=== PATIENT | female | born 1950 | race Caucasian/White ===

== ENCOUNTER 2021-04-26 12:51 | Inpatient (IN) ==
--- NOTE | 2021-04-26 13:10 | Emergency Department Note ---
Fall HPI General Chief Complaint: Trauma Stated Complaint: fall Time Seen by Provider: 04/26/21 13:03 Source: patient, family, RN notes reviewed and old records reviewed Mode of arrival: wheelchair Limitations: no limitations History of Present Illness HPI Narrative: Narrative: 70-year-old female complains of mechanical fall and driveway at [facility]. She has a history of a CVA with left residual and she tripped and fell. She is describes hitting the left side of her head her left ankle and left wrist. She denies loss of consciousness she denies nausea vomiting she denies discharge from ears or nose she has chronic neck pain and she says it is unchanged she denies any chest pain or abdominal pain or pelvis pain she is able to ambulate but complains of pain and swelling to her left wrist into her left ankle. MD Complaint: fall Onset (ago): minute(s) (30) Fall From: standing Fall Witnessed: no Place Fall Occurred: home Loss of Consciousness: none Prolonged Down Time?: minute(s) (30) Context: tripped/slipped Location of injury: head Location of injury - extremities: Left: forearm (wrist) and ankle Severity: moderate Quality: dull and aching Associated symptoms (after fall): Reports neck pain; Denies headache, numbness, weakness, chest pain, shortness of breath, abdominal pain, hematuria, unable to walk, lightheaded, vertigo and confusion Related Data Home Medications Medication Instructions Recorded Confirmed aspirin 81 mg tablet,delayed 81 mg PO QDAY 07/17/17 04/26/21 release vitamin B complex 1 tab PO QDAY 07/17/17 04/26/21 multivitamin,[id number] 1 tab PO QDAY 07/28/17 04/26/21 Previous Rx's Medication Instructions Recorded albuterol sulfate 90 mcg/actuation 2 puff INHALATION Q6H #18 g 02/23/21 aerosol inhaler atorvastatin 40 mg tablet 40 mg PO QHS #90 ea 02/23/21 cholecalciferol (vitamin D3) 25 1,000 unit PO QDAY #90 cap 02/23/21 mcg (1,000 unit) capsule sertraline 100 mg tablet 100 mg PO QDAY #90 tab 02/23/21 apixaban 5 mg tablet 5 mg PO BID 90 Days #180 tab 03/16/21 ipratropium 0.5 mg-albuterol 3 mg 3 ml INHALATION Q4H PRN 90 Days 03/16/21 (2.5 mg base)/3 mL nebulization #180 ml soln Allergies Allergy/AdvReac Type Severity Reaction Status Date / Time No Known Drug Allergies Allergy Verified 03/16/21 16:40 Review of Systems ROS ROS Narrative: Narrative: All systems ED: reviewed and negative except as stated. 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) History of CVA (cerebrovascular accident) (Chronic) Alcohol abuse (Chronic) Anxiety states (Chronic) Depression, major, recurrent (Chronic) Muscle spasm of left shoulder (Chronic) Osteoarthritis (Chronic) Hypothyroidism (Chronic) Pulmonary nodule (Chronic) Spastic hemiparesis of left nondominant side (Chronic) Vertebral artery stenosis (Chronic) Paroxysmal atrial fibrillation (Chronic) Pure hypercholesterolemia (Chronic) Hypertension (Chronic) History of Coumadin therapy (Chronic) Subconjunctival hemorrhage (Chronic) Shortness of breath (Chronic) COPD (chronic obstructive pulmonary disease) (Chronic) Ischemic stroke without coma (Chronic) Medical History Alcohol abuse Anxiety states Atrial fibrillation COPD (chronic obstructive pulmonary disease) Depression, major, recurrent Fatigue History of Coumadin therapy History of CVA (cerebrovascular accident) History of stroke 2016, left side residuals Hypertension Hypothyroidism Ischemic stroke without coma 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 use of aspirin Medicare annual wellness visit, initial Muscle spasm of left shoulder Nasal congestion BRONWYN on CPAP Osteoarthritis Paroxysmal atrial fibrillation Pulmonary nodule Pure hypercholesterolemia Shortness of breath Spastic hemiparesis of left nondominant side Stroke (~06/2016) Subconjunctival hemorrhage Swelling of left hand Tobacco use Vertebral artery stenosis Surgical History History of tonsillectomy and adenoidectomy Family History Mother Heart disease Phlebitis Rheumatoid arthritis Father Stroke Alcoholism Brother Alcoholism Thyroid disorder Sister Diabetes Daughter Ovarian cyst Social History Smoking Status: Former smoker Alcohol Intake Frequency: a few times a month Substance Use: does not use Exam Narrative Narrative: Narrative: General Limitations: no limitations General appearance: Present alert and in no apparent distress Head Head: Present normocephalic and normal inspection Eye Eye: Present normal appearance, PERRL and EOMI; Absent scleral icterus and conjunctival injection ENT ENT: Present normal exam, normal oropharynx and mucous membranes moist Neck Neck: Present normal inspection, trachea midline and tenderness; Absent lymphadenopathy and thyromegaly Chest Chest: Present normal inspection and symmetric chest wall rise; Absent tenderness Respiratory Respiratory: Present wheezes; Absent respiratory distress, stridor, accessory muscle use and prolonged expiratory phase Cardiovascular Cardiovascular: Present regular rate, normal rhythm and systolic murmur; Absent diastolic murmur Adbominal Abdominal: Present soft; Absent distention, tenderness, guarding, rebound, rigidity, organomegaly and mass Extremities Extremities: Present full ROM, tenderness, normal capillary refill and joint swelling (Left ankle and left wrist with swelling and); Absent pedal edema, pretibial edema and calf tenderness Back Back: Present normal inspection and full ROM; Absent tenderness, CVA tenderness (R), CVA tenderness (L) and spinous process tenderness Neurological Neurological: Present alert, oriented X3 and motor sensory deficit (CVA residual to left upper extremity) Psychiatric Psychiatric: Present normal affect and normal mood Skin Skin: Present warm (WNL) and dry Course Vital Signs Vital signs: Vital Signs Temperature 98.1 F 04/26/21 12:52 Pulse Rate 67 04/26/21 12:52 Respiratory Rate 16 04/26/21 12:52 Blood Pressure 146/70 04/26/21 12:52 Pulse Oximetry (%) 95 04/26/21 12:52 Temperature 98.1 F 04/26/21 12:52 Pulse Rate 66 04/26/21 15:04 Respiratory Rate 16 04/26/21 12:52 Blood Pressure 108/89 04/26/21 14:32 Pulse Oximetry (%) 97 04/26/21 15:04 [facility] Narrative Medical decision making narrative: Narrative: 70-year-old female with a wrist fracture and able calcaneus fracture discussed patient Dr. Lopez who graciously agreed to evaluate the patient in the emerg ency department. Head neck CT are without acute changes old right middle cerebral artery CVA noted Lab Data Result diagrams: 04/26/21 14:41 04/26/21 14:41 Labs: Lab Results 04/26/21 Range/Units 14:41 POC Hct 38 (36-48) % POC Sodium 145 (133-145) mEq/L POC Potassium 3.9 (3.3-5.1) mEql/L POC Chloride 109 H (96-108) mEq/L POC Total CO2 24 (22-30) mmol/L POC BUN 9 (6-20) mg/dL POC Creatinine 0.7 (0.6-1.2) mg/dL POC Glucose 96 (70-105) mg/dL POC WB Ioniz Calcium 1.24 (1.16-1.32) mmEq/L ED POC Tests ED POC Tests: INDER - SARS Antigen Negative Radiology Data Radiology results reviewed: Yes I reviewed the patient's radiology results. Radiology results narrative: Left Ankle IMPRESSION: large avulsion fracture off the posterior border of the calcaneus Left Wrist IMPRESSION: Intra-articular fracture of the distal radius with overlying soft tissue swelling Head and Neck NAD old CVA EKG Data EKG #1: EKG attestation: Yes I reviewed and interpreted this EKG. EKG shows normal: sinus rhythm Rate: normal (59) Rhythm: NSR [place]/QRS: normal Heart block present: None ST segment elevation in: None Q waves: None T wave inversions noted in: None Hyperacute T waves: None QTc: normal QRS morphology: Present normal Interpretation: no acute changes Pulse Oximetry Data Pulse Ox %: 97 Interpretation: WNL Discharge Plan Patient/Caregiver Discharge Instructions Pt seen by HEALTH PROGRAM ANALYST/PA only: No Clinical Impression: Closed head injury Qualifiers: Encounter type: initial encounter Qualified Code(s): S09.90XA - Unspecified injury of head, initial encounter Calcaneus fracture, left Qualifiers: Encounter type: initial encounter Calcaneus location: body Fracture type: closed Fracture alignment: displaced Qualified Code(s): S92.012A - Displaced fracture of body of left calcaneus, initial encounter for closed fracture Left wrist fracture Qualifiers: Encounter type: initial encounter Fracture type: closed Qualified Code(s): S62.102A - Fracture of unspecified carpal bone, left wrist, initial encounter for closed fracture Patient Disposition: Xfer As Inpt ([facility]) Follow up with: Jaimie Castro DO [Primary Care Provider] - Prescriptions: No Action aspirin 81 mg tablet,delayed release (DR/EC) 81 mg PO QDAY RF: 0 vitamin B complex tablet 1 tab PO QDAY RF: 0 multivitamin,[id number] [Complete Multivitamin] tablet 1 tab PO QDAY RF: 0 atorvastatin 40 mg tablet 40 mg PO QHS Qty: 90 RF: 0 cholecalciferol (vitamin D3) 25 mcg (1,000 unit) capsule 1,000 unit PO QDAY Qty: 90 RF: 0 sertraline 100 mg tablet 100 mg PO QDAY Qty: 90 RF: 0 albuterol sulfate 90 mcg/actuation HFA aerosol inhaler 2 puff INHALATION Q6H Qty: 18 RF: 6 ipratropium-albuterol 0.5 mg-3 mg(2.5 mg base)/3 mL solution for nebulization 3 ml INHALATION Q4H PRN (Reason: shortness of breath) 90 Days Qty: 180 RF: 0 Eliquis 5 mg tablet 5 mg PO BID 90 Days Qty: 180 RF: 0
--- NOTE | 2021-04-26 13:55 | Cat Scan Report ---
History: Fell, head injury, anticoagulated, prior stroke TECHNIQUE: The brain was imaged without contrast in axial plane at 2.5 mm intervals. Sagittal and coronal reformats were created. The radiation exposure was limited using dose reduction technology. FINDINGS: Bone windows show no skull fracture. There is no intracranial hemorrhage or cerebral edema. There is a large old infarct with encephalomalacia in distribution of the right middle cerebral artery. Involves the frontal parietal and temporal lobes. There are also large old lacunar infarct with encephalomalacia anteriorly in the right basal ganglia. Small old lacunar infarct is present inferiorly in the left putamen. These infarcts were seen acutely on 07/11/16. No new infarct is detected. There is loss of brain parenchyma the right hemisphere allowing for the right lateral ventricle to become mildly dilated. There is no hydrocephalus. No abnormal extra-axial fluid collection has developed. IMPRESSION: Old infarcts, predominantly involving the distribution of the right middle cerebral artery No evidence of acute head injury Dr. Perrin was called with the report Interpreted and Authenticated by: Juve Schneider 04/26/21
--- NOTE | 2021-04-26 13:55 | Cat Scan Report ---
History: Fell with neck injury, anticoagulated TECHNIQUE: The neck was imaged without contrast in axial plane at 2.5 mm intervals from the skull base through the thoracic inlet. Sagittal and coronal reformats were created. The radiation exposure was limited using dose reduction technology. FINDINGS: There is no fracture or destructive bone lesion. There is moderate arthritis at the articulation of the odontoid and anterior ring of C1. There is a small cortical erosion along the top of the odontoid. There is severe disc space narrowing at C5-6 and C6-7 there is moderate narrowing at C7-T1. There are medium-sized spurs along the posterior border of these disc spaces. There is also 3 mm grade 1 spondylolisthesis at C5-C6 due to arthritis in the facet joints. There is severe arthritis in the right facet at C2-3 and the left side at C4-5. There is ankylosis across the right side facet joint at C3-4. There is spurring of the uncinate processes causing severe stenosis of the right-side neural foramen at C6-7 and moderate stenosis bilaterally at C5-6. There is no paraspinal hematoma or prevertebral edema. IMPRESSION: No fracture Degenerative disc disease and arthritis at multiple levels Dr. Perrin was called with the report Interpreted and Authenticated by: Juve Schneider 04/26/21
--- NOTE | 2021-04-26 13:55 | XRay Report ---
HISTORY: Fell FINDINGS: There is a large avulsion fracture fragment off of the posterior superior corner of the calcaneus. The fragment measures 1.7 x 3.7 cm. It has rotated and retracted proximally. It is located behind the ankle joint. Ankle joint itself is normal without evidence of a fracture. Subtalar joint spaces are normal. IMPRESSION: large avulsion fracture off the posterior border of the calcaneus Interpreted and Authenticated by: Juve Schneider 04/26/21
--- NOTE | 2021-04-26 13:55 | XRay Report ---
HISTORY: Fell with left wrist injury FINDINGS: There is an acute mildly comminuted intra-articular fracture the distal radius. The articular surface slightly slopes in a dorsal direction. There is a small displaced fragment along the dorsal side. The carpal bones remain normally aligned with the radius. The carpal bones are normal, with no fracture or significant arthritis. Patient has underlying moderate osteoporosis. IMPRESSION: Intra-articular fracture of the distal radius with overlying soft tissue swelling Interpreted and Authenticated by: Juve Schneider 04/26/21
[2021-04-26] MEDS ORDERED: IPRATROPIUM/ALBUTEROL 3 ML AMPUL.NEB NEB ONE (14:05)
[2021-04-26] MEDS ORDERED: morphine 4 MG/ML VIAL IV ONE (14:32)
[2021-04-26] MEDS ORDERED: 0.9 % SODIUM CHLORIDE 500 ML IV ONE (14:32)
[2021-04-26] MEDS ORDERED: ONDANSETRON 4 MG/2 ML VIAL IV ONE (14:32)
[2021-04-26 15:02] LABS: POC Blood Urea Nitrogen 9 mg/dL (6-20); POC CO2 24 mmol/L (22-30); POC Calcium, Ionized 1.24 mmEq/L (1.16-1.32); POC Chloride 109 mEq/L (96-108); POC Creatinine 0.7 mg/dL (0.6-1.2); POC Glucose, Random 96 mg/dL (70-105); POC Hematocrit 38 % (36-48); POC Potassium 3.9 mEql/L (3.3-5.1); POC Sodium 145 mEq/L (133-145)
[2021-04-26 15:27] LABS: Basophils # (Auto) 0.07 K/mcL (0.00-0.20); Basophils % (Auto) 0.7 % (0.0-2.0); Eosinophils # (Auto) 0.08 K/mcL (0.00-0.70); Eosinophils % (Auto) 0.8 % (0.0-7.0); Hematocrit 40.8 % (36.0-48.0); Hemoglobin 13.3 g/dL (12.0-15.0); Lymphocytes # (Auto) 2.24 K/mcL (1.50-4.80); Lymphocytes % (Auto) 23.4 % (15.0-49.0); Mean Cell Volume 91.3 fL (80.0-100.0); Mean Corpuscular HGB Conc 32.6 g/dL (31.0-36.0); Mean Platelet Volume 10.9 fL (7.4-10.4); Monocytes # (Auto) 0.45 K/mcL (0.10-0.90); Monocytes % (Auto) 4.7 % (1.0-12.0); Neutrophils % (Auto) 70.4 % (38.0-78.0); Platelet Count 238 K/mcL (140-440); RBC 4.47 M/mcL (4.00-5.20); Red Cell Distribution Width 13.9 % (11.5-14.5); WBC 9.6 K/mcL (4.5-11.0)
--- NOTE | 2021-04-26 15:31 | XRay Report ---
HISTORY: Preop for fracture repair FINDINGS: The lungs are clear well-expanded. The heart size, pulmonary vascular, mediastinum, kali and pleura are normal. No fracture is identified. Large right-sided epicardial fat pad is present which was documented on a prior CT. IMPRESSION: Normal chest Interpreted and Authenticated by: Juve Schneider 04/26/21
[2021-04-26] MEDS ORDERED: PROPOFOL 200 MG/20 ML VIAL IV ONE (15:34)
[2021-04-26] MEDS ORDERED: ONDANSETRON 4 MG/2 ML VIAL ONE (15:34)
[2021-04-26] MEDS ORDERED: TRANEXAMIC ACID 1,000 MG/10 ML VIAL IV ONE (15:34)
[2021-04-26] MEDS ORDERED: DEXAMETHASONE 10 MG/ML VIAL ONE (15:34)
[2021-04-26] MEDS ORDERED: KETAMINE 50 MG/ML ML ONE (15:34)
[2021-04-26] MEDS ORDERED: SUCCINYLCHOLINE 20 MG/ML ML IV ONE (15:34)
[2021-04-26] MEDS ORDERED: LIDOCAINE HCL/PF 100 MG/5 ML SYRINGE IV ONE (15:34)
[2021-04-26] MEDS ORDERED: fentaNYL 250 MCG/5 ML VIAL IV ONE (15:34)
[2021-04-26] MEDS ORDERED: GLYCOPYRROLATE 0.2 MG/ML VIAL IV ONE (15:34)
[2021-04-26 15:50] LABS: ALT/SGPT 16 U/L (<40); AST/SGOT 18 U/L (<32); Albumin 4.1 gm/dL (3.2-5.2); Albumin/Globulin Ratio 1.5 (1.0-2.3); Alkaline Phosphatase 105 U/L (39-117); Bilirubin,Total 0.3 mg/dL (0.1-1.0); Blood Urea Nitrogen 9 mg/dL (8-23); Calcium 9.5 mg/dL (8.6-10.4); Carbon Dioxide 24 mmol/L (22-30); Chloride 109 mmol/L (96-108); Globulin 2.7 gm/dL (2.2-3.7); Glomerular Filtration Rate 87; Glucose 93 mg/dL (70-105)
--- NOTE | 2021-04-26 15:53 | History and Physical Report ---
DATE OF ADMISSION: 04/26/2021 IDENTIFICATION: A 70-year-old female. CHIEF COMPLAINT: 1. Left calcaneus fracture. 2. Left distal radius fracture. HISTORY: Sheba had a fall in her driveway. This is a ground-level non-syncopal fall. She had immediate pain, was not able to bear weight, was transferred to the hospital where she was evaluated and diagnosed with a calcaneus fracture, which is a tongue-type and distal radius fracture. Because the calcaneus fracture is tenting the skin, we are called for more acute management of this. PAST MEDICAL HISTORY: Significant for pervious stroke, history of COPD, atrial fibrillation, status post depression and anxiety. PAST SURGICAL HISTORY: Noncontributory to this present problem. PRESENT MEDICATIONS: Include: 1. Aspirin. 2. Vitamin B. 3. Atorvastatin. 4. Vitamin D. 5. Sertraline. 6. Albuterol. 7. Ipratropium. 8. Eliquis. ALLERGIES: NONE. REVIEW OF SYSTEMS: Apparently, she has been in usual state of health. No acute changes in past medical. PHYSICAL EXAMINATION: GENERAL: Shows she is awake and alert. She is resting comfortably. HEAD: Normocephalic, atraumatic. EYES: PERRLA. Conjunctivae clear. ENT: Within normal limits. NECK: Supple without pain on range of motion. HEART: Irregular. LUNGS: Clear. ABDOMEN: Benign. EXTREMITIES: Left distal radius shows some minimal deformity and some diffuse swelling with ecchymosis without neurovascular deficit. Her left lower extremity shows that there are several areas in the region of the Achilles, which are compromising the skin secondary to this fracture without neurovascular deficit. Her radiographs demonstrate a distal radius fracture with not excess displacement. It is shortened some and dorsally angulated. Her calcaneus is tongue-type with fragments that are migrated significantly proximally. IMPRESSION: Fractures, as above the calcaneus fracture is tenting the skin and will compromise the skin if not addressed. PLAN: We have reviewed treatment option. We will plan to proceed to the operating room with open reduction and internal fixation of this tongue-type fracture of the calcaneus and reduction and stabilization of the distal radius with splint. Procedure, risks, complications, limitations have been discussed with the patient family. They understand these well, wish to proceed. [email or web address] Job ID: [id number] Doc ID: [id number] Bjorn Lopez MD
--- NOTE | 2021-04-26 17:08 | Brief Operative Note ---
Brief Operative Note Date of procedure: 04/26/21 Pre-op diagnosis: L calcaneus fracture, L wrist fracture Post-op diagnosis: same Procedure: calcaneus fracture Grafts/Implants: No Anesthesia: GETA Complications: none Surgeon: Bjorn Lopez Tourniquet Time (Minutes): 45 Specimens Removed/Pathology: none sent Condition: stable Disposition: PACU
[2021-04-26] MEDS ORDERED: METHOCARBAMOL 1,000 MG/10 ML VIAL IV PRN (17:23)
[2021-04-26] MEDS ORDERED: MEPERIDINE 25 MG/ML VIAL IV PRN (17:23)
[2021-04-26] MEDS ORDERED: fentaNYL 100 MCG/2 ML VIAL IV PRN (17:23)
[2021-04-26] MEDS ORDERED: NALOXONE HCL 0.4 MG/ML VIAL IV PRN (17:23)
[2021-04-26] MEDS ORDERED: IPRATROPIUM/ALBUTEROL 3 ML AMPUL.NEB NEB PRN (17:23)
[2021-04-26] MEDS ORDERED: METOPROLOL TARTRATE 5 MG/5 ML VIAL IV PRN (17:23)
[2021-04-26] MEDS ORDERED: ONDANSETRON 4 MG/2 ML VIAL IV PRN (17:23)
[2021-04-26] MEDS ORDERED: PROMETHAZINE 25 MG/ML VIAL IV PRN (17:23)
[2021-04-26] MEDS ORDERED: HYDROmorphone 0.5 MG/0.5 ML SYRINGE IV PRN (17:23)
[2021-04-26] MEDS ORDERED: ACETAMINOPHEN 1,000 MG/100 ML BAG IV ONE (17:23)
[2021-04-26] MEDS: ALBUTEROL SULFATE 200 PUFF INHALER INH SCH ×2 (18:06→23:55)
[2021-04-26] MEDS: HYDROCODONE/APAP 7.5/325MG TABLET PO PRN ×2 (18:51→22:55)
[2021-04-26] MEDS ORDERED: BENZOCAINE/MENTHOL 1 LOZENGE PO PRN (20:10)
[2021-04-26] MEDS ORDERED: BENZOCAINE/MENTHOL 1 LOZENGE PO ONE (20:15)
[2021-04-26] MEDS ORDERED: ATORVASTATIN 40 MG TABLET PO SCH (21:00)
[2021-04-26] MEDS: IPRATROPIUM/ALBUTEROL 3 ML AMPUL.NEB NEB PRN (21:55)
[2021-04-26] MEDS: APIXABAN 5 MG TABLET PO SCH (21:55)
[2021-04-26] MEDS: 0.9 % SODIUM CHLORIDE 10 ML SYRINGE IV SCH (21:55)
[2021-04-27] MEDS: ceFAZolin 1 GM VIAL IV SCH ×2 (00:03→07:57)
[2021-04-27] MEDS: HYDROCODONE/APAP 7.5/325MG TABLET PO PRN ×5 (03:59→21:33)
[2021-04-27] MEDS: IPRATROPIUM/ALBUTEROL 3 ML AMPUL.NEB NEB PRN ×3 (04:11→18:21)
[2021-04-27] MEDS: 0.9 % SODIUM CHLORIDE 10 ML SYRINGE IV SCH ×3 (04:11→21:33)
[2021-04-27] MEDS: ALBUTEROL SULFATE 200 PUFF INHALER INH SCH (04:11)
--- NOTE | 2021-04-27 07:19 | Orthopedic Progress Note ---
SUBJECTIVE Subjective Patient information: Note initiated : 04/27/21 at 7:15 am Service Date, if different from initiated Date: [] Patient: Sheba Spence a 70 y/o F admitted on for fall. Chief Complaint: [calcaneus fracture, distal radius fracture ] Principal diagnosis: calcaneus fracture Constitutional Vitals: Vital Signs Temp Pulse Resp BP Pulse Ox 97.3 F 80 14 131/71 93 04/27/21 03:59 04/27/21 03:59 04/27/21 03:59 04/27/21 03:59 04/27/21 03:59 Period Temp Pulse Resp BP Sys/Dillard Pulse Ox Last 24 Hr 97.1 F-98.1 F 59-85 12-18 89-146/38-89 85-100 Intake and Output 04/26/21 04/27/21 04/27/21 21:59 05:59 13:59 Intake Total 1700 200 120 Output Total 150 2 1 Balance 1550 198 119 Weight 226 lb Intake & Output: Intake & Output 04/26/21 04/27/21 04/27/21 21:59 05:59 13:59 Intake Total 1700 200 120 Output Total 150 2 1 Balance 1550 198 119 Weight 226 lb Intake: IV 200 Sodium Chloride 0.9% 500 ml @ 100 Wide Open IV BOLUS ONE Rx#: [id number] Oral 200 120 IV - Manual Only 1500 Output: Void Amount 100 # of times incontinent of urine 2 1 Estimated Blood Loss 50 Other: # Voids 1 OBJ DATA Labs CBC & Chem 7: 04/26/21 14:41 04/26/21 14:41 Labs: Abnormal Lab Results 04/26/21 04/26/21 14:41 14:41 MPV 10.9 H POC Chloride 109 H Chloride 109 H Meds: Medications Hydrocodone Bitart/Acetaminophen (Hydrocodone/Apap 7.5/325mg Tablet) 1 - 2 tab PO Q4HP PRN; Protocol PRN Reason: Per Pain Protocol Last Admin: 04/27/21 03:59 Dose: 2 tab Documented by: Albuterol Sulfate (Albuterol Sulfate 200 Puff Inhaler) 2 puff INH Q6H ASHLEY Last Admin: 04/27/21 04:11 Dose: Not Given Documented by: Albuterol/Ipratropium (Ipratropium/Albuterol 3 Ml Ampul.Neb) 3 ml NEB Q4HP PRN PRN Reason: shortness of breath Last Admin: 04/27/21 04:11 Dose: 3 ml Documented by: Apixaban (Apixaban 5 Mg Tablet) 5 mg PO BID [facility] Last Admin: 04/26/21 21:55 Dose: 5 mg Documented by: Aspirin (Aspirin 81 Mg Tab.Chew) 81 mg PO DAILY [facility] Atorvastatin Calcium (Atorvastatin 40 Mg Tablet) 40 mg PO QHS [facility] Last Admin: 04/26/21 21:55 Dose: 40 mg Documented by: Cefazolin Sodium (Cefazolin 1 Gm Vial) 2 gm IV Q8H [facility] Stop: 04/27/21 08:01 Last Admin: 04/27/21 00:03 Dose: 2 gm Documented by: Iron Carb/Multivit/Registered Nurse/Folic Acid (Multivit,Ther Iron,Ca,Fa & Min 1 Tablet) 1 tab PO DAILY [facility] Sertraline HCl (Sertraline 100 Mg Tablet) 100 mg PO QDAY [facility] Sodium Chloride (0.9 % Sodium Chloride 10 Ml Syringe) 10 ml IV Q8 [facility] Last Admin: 04/27/21 04:11 Dose: 10 ml Documented by: Throat Lozenges (Benzocaine/Menthol 1 Lozenge) 1 lozenge PO PRN PRN PRN Reason: Sore Throat Last Admin: 04/26/21 20:14 Dose: 1 lozenge Documented by: Vitamin B Complex (Vitamin B Complex 1 Capsule) 1 cap PO DAILY [facility] Vitamin D (Vitamin D3 1,000 Unit Tablet) 1,000 unit PO DAILY [facility] A/P Narrative A/P Narrative: complex paitent with Left hemiparesis following a stroke. patient is nonweight bearing on Left secondary to calcaneus fracture and unable to use Left upper extremity. Has been unable to mobilize bc of above. Patient is max 2- 3 person assist and has limited help at home. Patient is unsafe to dc. Time Spent With Patient Time: Total time spent is greater than 50% in coordination of care (as documented) at patient's floor/unit and/or counseling patient:
[2021-04-27] MEDS: APIXABAN 5 MG TABLET PO SCH ×2 (07:58→21:33)
[2021-04-27] MEDS: ASPIRIN 81 MG TAB.CHEW PO SCH (07:58)
[2021-04-27] MEDS: VITAMIN D3 1,000 UNIT TABLET PO SCH (07:58)
[2021-04-27] MEDS: MULTIVIT,THER IRON,CA,FA & MIN 1 TABLET PO SCH (07:58)
[2021-04-27] MEDS: SERTRALINE 100 MG TABLET PO SCH (07:58)
[2021-04-27] MEDS: VITAMIN B COMPLEX 1 CAPSULE PO SCH (07:58)
--- NOTE | 2021-04-27 08:44 | Operative Note ---
DATE OF OPERATION: 04/26/2021 PREOPERATIVE DIAGNOSES: 1. Left calcaneus fracture, a tongue-type fracture with avulsion of her Achilles. 2. Left distal radius fracture. POSTOPERATIVE DIAGNOSES: 1. Left calcaneus fracture, a tongue-type fracture with avulsion of her Achilles 2. Left distal radius fracture. OPERATION PROPOSED: Reduction and internal fixation of left calcaneus fracture. OPERATION PERFORMED: Closed reduction and splinting of left distal radius fracture. SURGEON: Bjorn Lopez M.D. SEARCH ENGINE OPTIMIZATION CONSULTANT: Mich Bradley PA-C. This providers expertise and technical skill were required throughout the case. The PA assisted with preoperative coordination, intraoperative retraction, wound closure, and dressing and splint application, as well as postoperative documentation and care coordination. INDICATIONS: This is a lady who has a calcaneus fracture in need of operative treatment. She also has a distal radius fracture. Because she is on Eliquis, we have elected to treat the left distal radius fracture nonoperatively. We would have delayed surgery on her calcaneus, although the avulsed fragment was tenting the skin and there was concern that it would erode through the skin. DESCRIPTION OF PROCEDURE: Informed consent was obtained, the patient was taken to the operating room with appropriate anesthetic and prophylactic antibiotics given. She was carefully positioned. The left leg was prepped sterilely. I initially tried to reduce the fragment percutaneously, but adequate reduction really was not able to be achieved. A lateral incision was made. We dissected down to expose the fragments and essentially an anatomic reduction was performed and a top down 5.0 cannulated screw was placed. I then placed a TightRope in similar fashion across the fracture to hold it, additionally. The wounds were irrigated thoroughly. They were closed with a 2-0 Vicryl deep inverted 3-0 and 3-0 nylon. The sterile dressing and splint was applied. Attention was then turned to the left distal radius where a closed reduction was performed. A splint was applied. The position was verified with fluoroscopy. The procedure was tolerated well. No complications. ESTIMATED BLOOD LOSS: Less than 10 mL. TOURNIQUET TIME: 45 minutes. GDD:[email or web address] Job ID: [id number] Doc ID: [id number] Bjorn Lopez MD
[2021-04-27] MEDS ORDERED: ASPIRIN 81 MG TAB.CHEW PO SCH (09:00)
[2021-04-27] MEDS: OMEPRAZOLE 20 MG CAPSULE PO SCH ×2 (12:12→16:56)
[2021-04-27] MEDS ORDERED: ONDANSETRON 4 MG ODT TABLET SL PRN (18:42)
[2021-04-27] MEDS ORDERED: ONDANSETRON 4 MG ODT TABLET ONE (18:45)
[2021-04-27] MEDS: ATORVASTATIN 40 MG TABLET PO SCH (21:33)
[2021-04-28] MEDS: HYDROCODONE/APAP 7.5/325MG TABLET PO PRN ×4 (03:19→20:16)
[2021-04-28] MEDS: IPRATROPIUM/ALBUTEROL 3 ML AMPUL.NEB NEB PRN ×2 (03:29→17:12)
[2021-04-28] MEDS: 0.9 % SODIUM CHLORIDE 10 ML SYRINGE IV SCH ×4 (03:30→20:17)
--- NOTE | 2021-04-28 07:33 | Orthopedic Progress Note ---
SUBJECTIVE Subjective Patient information: Note initiated : 04/28/21 at 7:30 am Service Date, if different from initiated Date: [] Patient: Sheba Spence 70 y/o F admitted on 04/26/21 for fall. Chief Complaint: [] Principal diagnosis: calcaneus fracture Constitutional Vitals: Vital Signs Temp Pulse Resp BP Pulse Ox 98.3 F 77 20 112/61 90 04/28/21 03:32 04/28/21 03:32 04/28/21 03:32 04/28/21 03:32 04/28/21 03:32 Period Temp Pulse Resp BP Sys/Dillard Pulse Ox Last 24 Hr 97.2 F-98.7 F 70-91 14-20 112-147/60-82 90-94 Intake and Output 04/27/21 04/28/21 04/28/21 21:59 05:59 13:59 Intake Total 200 100 Output Total 700 400 Balance -500 -300 Weight 235 lb 9.6 oz Intake & Output: Intake & Output 04/27/21 04/28/21 04/28/21 21:59 05:59 13:59 Intake Total 200 100 Output Total 700 400 Balance -500 -300 Weight 235 lb 9.6 oz Intake: IV 0 Sodium Chloride 0.9% 500 ml @ 0 Wide Open IV BOLUS ONE Rx#: [id number] Oral 200 100 Output: Void Amount 700 400 Other: Meal Dinner Percent of Meal Consumed 10 Feeding Ability Independent Urine Appearance Clear Clear Urine Color Bright Yellow Bright Yellow Urine Odor Normal OBJ DATA Labs CBC & Chem 7: 04/26/21 14:41 04/26/21 14:41 Labs: Abnormal Lab Results 04/26/21 04/26/21 14:41 14:41 MPV 10.9 H POC Chloride 109 H Chloride 109 H Meds: Medications Hydrocodone Bitart/Acetaminophen (Hydrocodone/Apap 7.5/325mg Tablet) 0 tab PO Q4HP PRN; Protocol PRN Reason: Per Pain Protocol Last Admin: 04/28/21 03:19 Dose: 2 tab Documented by: Albuterol/Ipratropium (Ipratropium/Albuterol 3 Ml Ampul.Neb) 3 ml NEB Q4HP PRN PRN Reason: Shortness Of Breath Last Admin: 04/28/21 03:29 Dose: 3 ml Documented by: Apixaban (Apixaban 5 Mg Tablet) 5 mg PO BID [facility] Last Admin: 04/27/21 21:33 Dose: 5 mg Documented by: Aspirin (Aspirin 81 Mg Tab.Chew) 81 mg PO DAILY [facility] Last Admin: 04/27/21 07:58 Dose: 81 mg Documented by: Atorvastatin Calcium (Atorvastatin 40 Mg Tablet) 40 mg PO HS [facility] Last Admin: 04/27/21 21:33 Dose: 40 mg Documented by: Iron Carb/Multivit/[place]/Folic Acid (Multivit,Ther Iron,Ca,Fa & Min 1 Tablet) 1 tab PO DAILY [facility] Last Admin: 04/27/21 07:58 Dose: 1 tab Documented by: Omeprazole (Omeprazole 20 Mg Capsule) 40 mg PO BIDAC [facility] Last Admin: 04/27/21 16:56 Dose: 40 mg Documented by: Ondansetron HCl (Ondansetron 4 Mg Odt Tablet) 4 mg SL Q4HP PRN PRN Reason: Nausea And Vomiting Last Admin: 04/27/21 18:45 Dose: 4 mg Documented by: Sertraline HCl (Sertraline 100 Mg Tablet) 100 mg PO QDAY [facility] Last Admin: 04/27/21 07:58 Dose: 100 mg Documented by: Sodium Chloride (0.9 % Sodium Chloride 10 Ml Syringe) 10 ml IV Q8 [facility] Last Admin: 04/28/21 04:04 Dose: Not Given Documented by: Vitamin B Complex (Vitamin B Complex 1 Capsule) 1 cap PO DAILY [facility] Last Admin: 04/27/21 07:58 Dose: 1 cap Documented by: Vitamin D (Vitamin D3 1,000 Unit Tablet) 1,000 unit PO DAILY [facility] Last Admin: 04/27/21 07:58 Dose: 1,000 unit Documented by: A/P Narrative A/P Narrative: max assist to mobilize as patient is non weight bearing on the Left Lower and Left Upper, also h/o stroke! Minimal assist at home, working on placement Time Spent With Patient Time: Total time spent is greater than 50% in coordination of care (as documented) at patient's floor/unit and/or counseling patient:
[2021-04-28] MEDS: VITAMIN B COMPLEX 1 CAPSULE PO SCH (08:04)
[2021-04-28] MEDS: SERTRALINE 100 MG TABLET PO SCH (08:05)
[2021-04-28] MEDS: MULTIVIT,THER IRON,CA,FA & MIN 1 TABLET PO SCH (08:05)
[2021-04-28] MEDS: VITAMIN D3 1,000 UNIT TABLET PO SCH (08:05)
[2021-04-28] MEDS: APIXABAN 5 MG TABLET PO SCH ×2 (08:05→20:16)
[2021-04-28] MEDS: ASPIRIN 81 MG TAB.CHEW PO SCH (08:05)
[2021-04-28] MEDS: OMEPRAZOLE 20 MG CAPSULE PO SCH ×2 (08:05→16:12)
[2021-04-28] MEDS ORDERED: MAGNESIUM HYDROXIDE 30 ML ORAL.SUSP PO PRN (15:48)
[2021-04-28] MEDS: DOCUSATE SODIUM 100 MG CAPSULE PO SCH (20:16)
[2021-04-28] MEDS: ATORVASTATIN 40 MG TABLET PO SCH (20:16)
[2021-04-29] MEDS: HYDROCODONE/APAP 7.5/325MG TABLET PO PRN ×2 (04:15→08:16)
[2021-04-29] MEDS: IPRATROPIUM/ALBUTEROL 3 ML AMPUL.NEB NEB PRN ×3 (04:16→13:39)
[2021-04-29] MEDS: 0.9 % SODIUM CHLORIDE 10 ML SYRINGE IV SCH ×2 (04:16→12:40)
[2021-04-29] MEDS: VITAMIN D3 1,000 UNIT TABLET PO SCH (08:07)
[2021-04-29] MEDS: ASPIRIN 81 MG TAB.CHEW PO SCH (08:08)
[2021-04-29] MEDS: SERTRALINE 100 MG TABLET PO SCH (08:08)
[2021-04-29] MEDS: DOCUSATE SODIUM 100 MG CAPSULE PO SCH (08:08)
[2021-04-29] MEDS: OMEPRAZOLE 20 MG CAPSULE PO SCH (08:08)
[2021-04-29] MEDS: APIXABAN 5 MG TABLET PO SCH (08:08)
[2021-04-29] MEDS: VITAMIN B COMPLEX 1 CAPSULE PO SCH (08:08)
[2021-04-29] MEDS: MULTIVIT,THER IRON,CA,FA & MIN 1 TABLET PO SCH (08:08)
--- NOTE | 2021-04-29 12:45 | Discharge Summary ---
Discharge Provider Provider Patient information: Note initiated : 04/29/21 at 12:38 pm Service Date, if different from initiated Date: [] Patient: Jordy,Sheba a 70 y/o F admitted on 04/26/21 for fall. Chief Complaint: [Left foot pain, left wrist pain] Patient is doing well. She does require assistance as her current status is NWB on LLE and with LUE. She has no particular complaints. Date of admission: 04/26/21 15:14 Discharge date: 04/29/21 Primary care physician: Jaimie Castro DO Consults: 04/26/21 Consult to Physician [CONS] Stat Comment: Consulting Provider: Bjorn Lopez Reason For Exam: Physician to Consult 04/27/21 11:24 Consult to Physician [CONS] Routine Comment: Nursing Home Facility Referral Consulting Provider: [facility] Reason For Exam: Physician to Consult COURSE Hospital Course Hospital course: Post-operatively, the patient was returned to the [facility] and provided routine pain managment and maintained on prophylactic abx. At the time of discharge, she is doing well and tolerating all medications well. She is discharged to follow-up with me in 2 weeks. She will call with any questions or concerns whatsoever. Discharge diagnosis: S/p ORIF of left calcaneus fx and closed reducation of left distal radius f Time Spent with Patient Time attestation: Total time spent providing and/or coordinating discharge services: Physical Examination Exam Incision healing: Yes Incision draining: No Incision red: No Clean and dry: Yes Weight bearing status: none Range of motion: ROM of left ankle, wrist, and elbow is limited due to splinting DC Instructions-General Patient Instructions Dressing Care: May shower in 2 days and Cover dressing in shower Additional Dressing Instructions: leave dressing/splints in place and keep clear/dry Discharge Plan Patient/Caregiver Discharge Instructions Activity: non-weight bearing Diet: Regular Diet Activity Restrictions/Additional Instructions: NWB on LLE, No lifing with LUE Prescriptions: New hydrocodone-acetaminophen 7.5-325 mg Tablet 1 - 2 tab PO Q4HP PRN (Reason: Per Pain Protocol) Qty: 50 RF: 0 Continued aspirin 81 mg tablet,delayed release (DR/EC) 81 mg PO HS RF: 0 vitamin B complex tablet 1 tab PO QDAY RF: 0 multivitamin,[id number] [Complete Multivitamin] tablet 1 tab PO QDAY RF: 0 atorvastatin 40 mg tablet 40 mg PO QHS Qty: 90 RF: 0 cholecalciferol (vitamin D3) 25 mcg (1,000 unit) capsule 1,000 unit PO QDAY Qty: 90 RF: 0 ipratropium-albuterol 0.5 mg-3 mg(2.5 mg base)/3 mL solution for nebulization 3 ml INHALATION Q4H PRN (Reason: shortness of breath) 90 Days Qty: 180 RF: 0 Eliquis 5 mg tablet 5 mg PO BID 90 Days Qty: 180 RF: 0 albuterol sulfate 90 mcg/actuation HFA aerosol inhaler 90 mcg INHALATION Q6H PRN (Reason: Shortness Of Breath Or Wheezing) RF: 0 sertraline 100 mg tablet 100 mg PO HS RF: 0 Other Ambulatory Orders: OT Discharge Order (Routine) Location: None Selected Ordered By: Mich Bradley Physical Therapy at Discharge - General (Routine) Location: None Selected Ordered By: Mich Bradley Follow Up Plan Follow up with: Jaimie Castro DO [Primary Care Provider] - Mich Bradley PA-C [Physician Director Of Reimbursement] - (f/u in 2 weeks) Patient Disposition: Xfer SNF Prognosis: Fair Rehab Potential: Fair I certify that the patient requires SNF services: Yes Overall status at discharge: patient is not back to baseline Discharge Orders: Discharge Order (Routine); Ordered 04/29/21 Ordered By: Bjorn Lopez Pending Pending Pending: Resuscitation Status Full Code Diet Regular Diet Start MonApr 26 1742 Hydrocodone Bitart/Acetaminophen (Hydrocodone/Apap 7.5/325mg Tablet) 0 tab PO Q4HP PRN; Protocol PRN Reason: Per Pain Protocol Last Admin: 04/29/21 08:16 Dose: 2 tab Documented by: Admin: 04/29/21 04:15 Dose: 2 tab Documented by: Admin: 04/28/21 20:16 Dose: 2 tab Documented by: Admin: 04/28/21 16:13 Dose: 1 tab Documented by: Admin: 04/28/21 08:05 Dose: 2 tab Documented by: Admin: 04/28/21 03:19 Dose: 2 tab Documented by: Admin: 04/27/21 21:33 Dose: 2 tab Documented by: Admin: 04/27/21 16:12 Dose: 2 tab Documented by: Admin: 04/27/21 11:56 Dose: 1 tab Documented by: Admin: 04/27/21 10:27 Dose: 1 tab Documented by: ESTBEAN Albuterol/Ipratropium (Ipratropium/Albuterol 3 Ml Ampul.Neb) 3 ml NEB Q4HP PRN PRN Reason: Shortness Of Breath Last Admin: 04/29/21 08:28 Dose: 3 ml Documented by: Admin: 04/29/21 04:16 Dose: 3 ml Documented by: Admin: 04/28/21 17:12 Dose: 3 ml Documented by: Admin: 04/28/21 03:29 Dose: 3 ml Documented by: Admin: 04/27/21 18:21 Dose: 3 ml Documented by: Admin: 04/27/21 12:27 Dose: 3 ml Documented by: ABRAHAM Apixaban (Apixaban 5 Mg Tablet) 5 mg PO BID [facility] Last Admin: 04/29/21 08:08 Dose: 5 mg Documented by: Admin: 04/28/21 20:16 Dose: 5 mg Documented by: Admin: 04/28/21 08:05 Dose: 5 mg Documented by: Admin: 04/27/21 21:33 Dose: 5 mg Documented by: RAMÍREZ Aspirin (Aspirin 81 Mg Tab.Chew) 81 mg PO DAILY [facility] Last Admin: 04/29/21 08:08 Dose: 81 mg Documented by: Admin: 04/28/21 08:05 Dose: 81 mg Documented by: Admin: 04/27/21 07:58 Dose: 81 mg Documented by: ESTEBAN Atorvastatin Calcium (Atorvastatin 40 Mg Tablet) 40 mg PO HS [facility] Last Admin: 04/28/21 20:16 Dose: 40 mg Documented by: Admin: 04/27/21 21:33 Dose: 40 mg Documented by: RAMÍREZ Docusate Sodium (Docusate Sodium 100 Mg Capsule) 100 mg PO BID [facility] Last Admin: 04/29/21 08:08 Dose: 100 mg Documented by: Admin: 04/28/21 20:16 Dose: 100 mg Documented by: MAR Iron Carb/Multivit/[place]/Folic Acid (Multivit,Ther Iron,Ca,Fa & Min 1 Tablet) 1 tab PO DAILY [facility] Last Admin: 04/29/21 08:08 Dose: 1 tab Documented by: Admin: 04/28/21 08:05 Dose: 1 tab Documented by: Admin: 04/27/21 07:58 Dose: 1 tab Documented by: ESTEBAN Magnesium Hydroxide (Magnesium Hydroxide 30 Ml Oral.Susp) 30 ml PO DAILYP PRN PRN Reason: Constipation Last Admin: 04/28/21 16:14 Dose: 30 ml Documented by: ESTEBAN Omeprazole (Omeprazole 20 Mg Capsule) 40 mg PO BIDAC [facility] Last Admin: 04/29/21 08:08 Dose: 40 mg Documented by: Admin: 04/28/21 16:12 Dose: 40 mg Documented by: Admin: 04/28/21 08:05 Dose: 40 mg Documented by: Admin: 04/27/21 16:56 Dose: 40 mg Documented by: Admin: 04/27/21 12:12 Dose: 40 mg Documented by: HERNANDO Ondansetron HCl (Ondansetron 4 Mg Odt Tablet) 4 mg SL Q4HP PRN PRN Reason: Nausea And Vomiting Last Admin: 04/27/21 18:45 Dose: 4 mg Documented by: RAMÍREZ Sertraline HCl (Sertraline 100 Mg Tablet) 100 mg PO QDAY [facility] Last Admin: 04/29/21 08:08 Dose: 100 mg Documented by: Admin: 04/28/21 08:05 Dose: 100 mg Documented by: Admin: 04/27/21 07:58 Dose: 100 mg Documented by: ESTEBAN Sodium Chloride (0.9 % Sodium Chloride 10 Ml Syringe) 10 ml IV Q8 [facility] Last Admin: 04/29/21 04:16 Dose: 10 ml Documented by: Admin: 04/28/21 20:17 Dose: 10 ml Documented by: Admin: 04/28/21 14:46 Dose: 10 ml Documented by: Admin: 04/28/21 04:04 Dose: Not Given Documented by: Admin: 04/28/21 03:30 Dose: 10 ml Documented by: Admin: 04/27/21 21:33 Dose: 10 ml Documented by: Admin: 04/27/21 15:02 Dose: Not Given Documented by: HERNANDO Vitamin B Complex (Vitamin B Complex 1 Capsule) 1 cap PO DAILY [facility] Last Admin: 04/29/21 08:08 Dose: 1 cap Documented by: Admin: 04/28/21 08:04 Dose: 1 cap Documented by: Admin: 04/27/21 07:58 Dose: 1 cap Documented by: ESTEBAN Vitamin D (Vitamin D3 1,000 Unit Tablet) 1,000 unit PO DAILY [facility] Last Admin: 04/29/21 08:07 Dose: 1,000 unit Documented by: Admin: 04/28/21 08:05 Dose: 1,000 unit Documented by: Admin: 04/27/21 07:58 Dose: 1,000 unit Documented by: ESTEBAN Shift Summary 04/29/21 04:51 Shift Summary by Dinora Romano Patient alert and oriented x4. Uses call light for needs. Slept well this shift. Unable to use her own CPAP. Patient states, "It has too much pressure. It needs to readjusting." Patient medicated with Hydrocodone 2 tabs twice with good effect. Up with 2 assist gait belt and tri-walker. Pivot transfers to [facility]. Non- wt bearing on left leg. Left arm sling on. Left forearm and left lower leg dressings with cast. VSS. On 2L nasal cannula , sats 91-94%. Given breathing treatment this morning. Initialized on 04/29/21 04:51 - END OF NOTE
--- NOTE | 2021-04-29 12:49 | Orthopedic Progress Note ---
SUBJECTIVE Subjective Patient information: Note initiated : 04/29/21 at 12:45 pm Service Date, if different from initiated Date: [] Patient: Sheba Spence 70 y/o F admitted on 04/26/21 for fall. Chief Complaint: [S/p ORIF of left calcaneus fx and closed reduction of left distal radius fx] Patient is doing well but does require assistance as she is NWB on the LLE and LUE. Principal diagnosis: calcaneus fracture Constitutional Vitals: Vital Signs Temp Pulse Resp BP Pulse Ox 98.1 F 80 18 117/52 94 04/29/21 12:00 04/29/21 12:00 04/29/21 12:00 04/29/21 12:00 04/29/21 12:00 Period Temp Pulse Resp BP Sys/Dillard Pulse Ox Last 24 Hr 98.1 F-98.9 F 67-86 16-20 103-118/52-63 90-96 Intake and Output 04/28/21 04/29/21 04/29/21 21:59 05:59 13:59 Intake Total 750 400 Output Total 500 Balance 250 400 Weight 225 lb 11.2 oz Intake & Output: Intake & Output 04/28/21 04/29/21 04/29/21 21:59 05:59 13:59 Intake Total 750 400 Output Total 500 Balance 250 400 Weight 225 lb 11.2 oz Intake: Oral 750 400 Output: Void Amount 500 Other: Meal Dinner Percent of Meal Consumed 25% Feeding Ability Independent Urine Appearance Clear Urine Color Pale Urine Odor Normal Stool Size Large Stool Color Brown Stool Consistency Formed # Voids 1 # Bowel Movements 1 Extremities Exam Extremities exam: Present calf tenderness (negative bilat), Freddy's sign (negative bilat) and neurovascular intact Additional comments: Splint in place on left ankle and left wrist limiting physical exam. Dressings are dry and intact. Neurological Exam Neurological exam: Present alert and oriented X3 Psychiatric Psychiatric exam: Present normal affect and normal mood OBJ DATA Labs CBC & Chem 7: 04/26/21 14:41 04/26/21 14:41 Labs: Abnormal Lab Results 04/26/21 04/26/21 14:41 14:41 MPV 10.9 H POC Chloride 109 H Chloride 109 H Meds: Medications Hydrocodone Bitart/Acetaminophen (Hydrocodone/Apap 7.5/325mg Tablet) 0 tab PO Q4HP PRN; Protocol PRN Reason: Per Pain Protocol Last Admin: 04/29/21 08:16 Dose: 2 tab Documented by: Albuterol/Ipratropium (Ipratropium/Albuterol 3 Ml Ampul.Neb) 3 ml NEB Q4HP PRN PRN Reason: Shortness Of Breath Last Admin: 04/29/21 08:28 Dose: 3 ml Documented by: Apixaban (Apixaban 5 Mg Tablet) 5 mg PO BID [facility] Last Admin: 04/29/21 08:08 Dose: 5 mg Documented by: Aspirin (Aspirin 81 Mg Tab.Chew) 81 mg PO DAILY [facility] Last Admin: 04/29/21 08:08 Dose: 81 mg Documented by: Atorvastatin Calcium (Atorvastatin 40 Mg Tablet) 40 mg PO HS [facility] Last Admin: 04/28/21 20:16 Dose: 40 mg Documented by: Docusate Sodium (Docusate Sodium 100 Mg Capsule) 100 mg PO BID [facility] Last Admin: 04/29/21 08:08 Dose: 100 mg Documented by: Iron Carb/Multivit/[place]/Folic Acid (Multivit,Ther Iron,Ca,Fa & Min 1 Tablet) 1 tab PO DAILY [facility] Last Admin: 04/29/21 08:08 Dose: 1 tab Documented by: Magnesium Hydroxide (Magnesium Hydroxide 30 Ml Oral.Susp) 30 ml PO DAILYP PRN PRN Reason: Constipation Last Admin: 04/28/21 16:14 Dose: 30 ml Documented by: Omeprazole (Omeprazole 20 Mg Capsule) 40 mg PO BIDAC [facility] Last Admin: 04/29/21 08:08 Dose: 40 mg Documented by: Ondansetron HCl (Ondansetron 4 Mg Odt Tablet) 4 mg SL Q4HP PRN PRN Reason: Nausea And Vomiting Last Admin: 04/27/21 18:45 Dose: 4 mg Documented by: Sertraline HCl (Sertraline 100 Mg Tablet) 100 mg PO QDAY [facility] Last Admin: 04/29/21 08:08 Dose: 100 mg Documented by: Sodium Chloride (0.9 % Sodium Chloride 10 Ml Syringe) 10 ml IV Q8 [facility] Last Admin: 04/29/21 12:40 Dose: Not Given Documented by: Vitamin B Complex (Vitamin B Complex 1 Capsule) 1 cap PO DAILY [facility] Last Admin: 04/29/21 08:08 Dose: 1 cap Documented by: Vitamin D (Vitamin D3 1,000 Unit Tablet) 1,000 unit PO DAILY [facility] Last Admin: 04/29/21 08:07 Dose: 1,000 unit Documented by: A/P Assessment and plan (1) Calcaneus fracture, left: Status: Acute Comment: Discharge to SNF today. Keep splints/dressing intact. Follow-up with [facility] in 2 weeks for xrays and casting. Qualifiers: Calcaneus location: body Encounter type: initial encounter Fracture alignment: displaced Fracture type: closed Qualified Code(s): S92.012A - Displaced fracture of body of left calcaneus, initial encounter for closed fracture (2) Left wrist fracture: Status: Acute Comment: Please see above plan. Qualifiers: Encounter type: initial encounter Fracture type: closed Qualified Code(s): S62.102A - Fracture of unspecified carpal bone, left wrist, initial encounter for closed fracture Time Spent With Patient Time: Total time spent is greater than 50% in coordination of care (as documented) at patient's floor/unit and/or counseling patient:
--- NOTE | 2021-05-01 16:29 | EKG ---
[facility] Test Date: 2021-04-26 Pat Name: Sheba Clemons Department: ED Room: Gender: Female Slurry Man: JOCELYNE : 1950 Requested By: Kamran Perrin Order Number: [id number] Reading MD: Chay Nation M.D. Measurements Intervals [place] Rate: 59 P: 45 [place]: 200 QRS: 31 QRSD: 92 T: 19 QT: 432 QTc: 428 Interpretive Statements AGE IS NOT ENTERED, ASSUMED TO BE 50 YEARS OLD FOR PURPOSE OF ECG INTERPRETATION SINUS RHYTHM BORDERLINE T WAVE ABNORMALITIES NO PRIOR TRACING FOR COMPARISON BORDERLINE ECG Electronically Signed On 05-01-2021 16:29:33 PDT by Chay Nation M.D. [id number]
== END 2021-04-29 13:45 | DRG 504 ==
LOC: ED 12:51 → MEDSUR 15:14 → SUR 15:14 → MEDSUR 17:55
PROVIDERS: ADMIT Orthopaedic Surgery Orthopaedic Surgery of the Spine; ATTEND Orthopaedic Surgery Orthopaedic Surgery of the Spine